=== PATIENT | female | born 1950 | race Caucasian/White ===

== ENCOUNTER 2018-04-25 10:23 | Inpatient (IN) | payer MEDICARE, OTHER ==
[~2018-04-25] VITALS: Ht 160 cm; Wt 85.1 kg
[2018-04-25] VITALS (8 sets, daily range): BP systolic 107–163; BP diastolic 50–97
[2018-04-25 10:48] LABS: BASOPHILS % (AUTO) 0.7 % (0.0-5.0); HEMATOCRIT 28.3 % (36-48); LYMPHOCYTES % (AUTO) 10.3 % (21.0-51.0); MEAN CORPUSCULAR HEMOGLOBIN 30.5 pg (27.0-33.0); MEAN CORPUSCULAR HGB CONC 33.8 g/dL (32.0-36.0); MEAN CORPUSCULAR VOLUME 90.2 fL (79-99); MONOCYTES % (AUTO) 3.2 % (3.0-13.0); NEUTROPHILS % (AUTO) 84.8 % (40.0-77.0); PLATELET COUNT (AUTO) 313 K/uL (130-400); RED BLOOD CELL COUNT(AUTO) 3.14 MIL/uL (4.00-5.50); RED CELL DISTRIBUTION WIDTH 13.6 % (11.0-15.5); WHITE BLOOD COUNT (AUTO) 13.4 K/uL (4.8-10.8)
[2018-04-25 11:06] LABS: CREATININE 1.3 mg/dL (0.5-1.5); POTASSIUM 4.8 mmol/L (3.5-5.1)
[2018-04-25 11:10] LABS: B-TYPE NATRIURETIC PEPTIDE 783 pg/mL (0-100)
[2018-04-25 11:11] LABS: BILIRUBIN,TOTAL 0.4 mg/dL (0.2-1.0); TOTAL PROTEIN, SERUM 6.5 g/dL (6.0-8.3)
[2018-04-25] MEDS ORDERED: EPINEPHRINE 0.1 MG/ML 10 ML SYG IVP ONE (12:00)
[2018-04-25] MEDS ORDERED: SODIUM BICARB 8.4% 50ML SYRINGE IVP ONE (12:00)
[2018-04-25] MEDS ORDERED: CALCIUM CHLORIDE 100 MG/ML 10 ML SYG IVP ONE (12:00)
[2018-04-25] MEDS ORDERED: SODIUM CHLORIDE 0.9% 100 ML IV ONE (12:10)
[2018-04-25] MEDS ORDERED: CEFTRIAXONE SODIUM 1 GM ONE (12:10)
[2018-04-25] MEDS ORDERED: IOPAMIDOL-370 75 ML VIAL IV ONE (12:29)
[2018-04-25 14:59] LABS: CREATINE KINASE MB 3.2 ng/mL (0.5-3.6)
[2018-04-25] MEDS ORDERED: HEPARIN SODIUM 1000UNIT/ML 10ML VIAL ONE (16:49)
[2018-04-25] MEDS ORDERED: BIVALIRUDIN 250 MG/VIAL IV ONE (16:49)
[2018-04-25] MEDS ORDERED: ISOVUE-370 50ML VIAL IV ONE (16:50)
[2018-04-25] MEDS ORDERED: IOPAMIDOL-370 100 ML VIAL IV ONE (16:50)
[2018-04-25] MEDS ORDERED: NITROGLYCERIN 5 MG/ML 10 ML VIAL IV ONE (16:50)
[2018-04-25] MEDS ORDERED: LIDOCAINE HCL 2% 20ML ONE (16:50)
[2018-04-25 16:55] LABS: INR 0.91 (0.85-1.15); PARTIAL THROMBOPLASTIN TIME 26.4 SEC (26.3-35.5); PROTHROMBIN TIME 9.6 SEC (9.6-11.6)
[2018-04-25 17:06] LABS: CREATINE KINASE MB 3.4 ng/mL (0.5-3.6); TROPONIN I 0.4 ng/mL (0.00-0.06)
[2018-04-25] MEDS ORDERED: MIDAZOLAM HCL 1 MG/ML 2ML VIAL ONE (17:34)
[2018-04-25] MEDS ORDERED: MORPHINE SULFATE 4 MG/1ML SYG ONE (17:35)
[2018-04-25] MEDS ORDERED: NITROGLYCERIN 50 MG/D5% WATER 1 BOT ONE (17:58)
[2018-04-25] MEDS ORDERED: FUROSEMIDE 10 MG/ML 2ML VIAL ONE (18:15)
[2018-04-25] MEDS ORDERED: CHOL500050 PO (18:16)
[2018-04-25] MEDS ORDERED: AEC81 PO (18:16)
[2018-04-25] MEDS ORDERED: ESCI10TA PO (18:16)
[2018-04-25] MEDS ORDERED: SITA100T12 PO (18:16)
[2018-04-25] MEDS ORDERED: GLYB2.5T5 PO (18:16)
[2018-04-25] MEDS ORDERED: SODIUM CHLORIDE 0.9% 1000ML 1,000 ML IV SCH (19:41)
[2018-04-25] MEDS ORDERED: DEXTROSE 50%-WATER 50 ML DISP.SYRIN IV PRN (19:45)
[2018-04-25] MEDS ORDERED: GLUCAGON 1MG KIT 1 MG ML IM PRN (19:45)
[2018-04-25 20:02] LABS: HEMOGLOBIN A1C 9.3 % (4.0-6.0)
[2018-04-25 20:06] LABS: CHOLESTEROL 177 mg/dL (<200); HDL CHOLESTEROL 53 mg/dL (35-85); LDL DIRECT 105 mg/dL (0-99); TRIGLYCERIDES 163 mg/dL (30-200)
[2018-04-25] MEDS ORDERED: SODIUM CHLORIDE 0.9% 500ML 500 ML IV SCH (20:07)
[2018-04-25] MEDS ORDERED: LISINOPRIL 5 MG TABLET ONE (20:12)
[2018-04-25] MEDS ORDERED: HEPARIN 25000 UNIT/250 ML IV SCH (20:15)
[2018-04-25] MEDS ORDERED: D5W IV SCH (20:15)
[2018-04-25] MEDS ORDERED: DEXTROSE 5%-WATER 1,000 ML IV SCH (20:45)
[2018-04-25] MEDS ORDERED: HEPARIN SODIUM 5000UNIT/ML 1ML VIAL SQ SCH (20:45)
[2018-04-25] MEDS: METOPROLOL TARTRATE 25 MG TAB PO SCH ×2 (21:00→21:02)
[2018-04-25 21:06] LABS: APPEARANCE,URINE Clear (CLEAR); BILIRUBIN,URINE Negative (NEGATIVE); COLOR,URINE Yellow (YELLOW); GLUCOSE, URINE (UA) TRACE mg/dL (NEGATIVE); KETONES,URINE Negative (NEGATIVE); LEUKOCYTE ESTERASE ,URINE Negative (NEGATIVE); NITRATE,URINE Negative (NEGATIVE); OCCULT BLOOD,URINE Trace (NEGATIVE); PROTEIN,URINE POS 2+ (NEGATIVE); UROBILINOGEN,URINE 0.2 mg/dL (0.2-1.0)
[2018-04-25] MEDS ORDERED: HEPARIN SODIUM 5000UNIT/ML 1ML VIAL IV SCH (21:15)
[2018-04-25 21:21] LABS: BACTERIA,URINE Few /HPF (None Seen); SQUAMOUS EPITHELIAL CELL,UR Rare /HPF (0-2); WBC,URINE 0-1 /HPF (0-1)
[2018-04-25] MEDS ORDERED: PHARMACY COMMUNICATION MISC STA (21:23)
[2018-04-25] MEDS ORDERED: WATER IV SCH (21:30)
[2018-04-25] MEDS ORDERED: DEXTROSE 5% IV SCH (21:30)
[2018-04-25] MEDS ORDERED: HEPARIN SODIUM IV SCH (21:30)
[2018-04-25] MEDS ORDERED: LORAZEPAM 1 MG TABLET PO STA (23:44)
[2018-04-25] MEDS ORDERED: LORAZEPAM 1 MG TABLET ONE (23:47)
[2018-04-26] VITALS (29 sets, daily range): BP systolic 97–150; BP diastolic 50–88
[2018-04-26 04:02] LABS: HEMATOCRIT 22.7 % (36-48); MEAN CORPUSCULAR HEMOGLOBIN 30.7 pg (27.0-33.0); MEAN CORPUSCULAR HGB CONC 34.6 g/dL (32.0-36.0); MEAN CORPUSCULAR VOLUME 88.9 fL (79-99); PLATELET COUNT (AUTO) 296 K/uL (130-400); RED BLOOD CELL COUNT(AUTO) 2.55 MIL/uL (4.00-5.50); RED CELL DISTRIBUTION WIDTH 13.3 % (11.0-15.5); WHITE BLOOD COUNT (AUTO) 8.7 K/uL (4.8-10.8)
[2018-04-26 04:03] LABS: INR 0.95 (0.85-1.15); PARTIAL THROMBOPLASTIN TIME 32.4 SEC (26.3-35.5)
[2018-04-26] MEDS ORDERED: LORAZEPAM 2 MG/ML 1 ML VIAL IVP STA (04:11)
[2018-04-26] MEDS ORDERED: LORAZEPAM 2 MG/ML 1 ML VIAL ONE (04:16)
[2018-04-26 04:24] LABS: B-TYPE NATRIURETIC PEPTIDE 678 pg/mL (0-100)
[2018-04-26 04:30] LABS: ALBUMIN 2.4 g/dL (3.5-5.0); BILIRUBIN,TOTAL 0.3 mg/dL (0.2-1.0); CREATINE KINASE MB 4.8 ng/mL (0.5-3.6); CREATININE 1.1 mg/dL (0.5-1.5); MAGNESIUM 1.7 mg/dL (1.80-2.40); TOTAL PROTEIN, SERUM 5.4 g/dL (6.0-8.3)
[2018-04-26 04:31] LABS: TROPONIN I 1.61 ng/mL (0.00-0.06)
[2018-04-26] MEDS ORDERED: HEPARIN SODIUM 1000UNIT/ML 10ML VIAL ONE ×3 (07:02→08:55)
[2018-04-26] MEDS ORDERED: OCTYL 2-CYANOACRYLATE 1 EACH TP ONE (07:02)
[2018-04-26] MEDS ORDERED: BACITRACIN 50,000 UNIT VIAL ONE (07:03)
[2018-04-26] MEDS ORDERED: PAPAVERINE HCL 30 MG/ML 2ML VIAL ONE (07:03)
[2018-04-26] MEDS ORDERED: AMIODARONE HCL 50 MG/ML 3 ML VIAL ONE (07:08)
[2018-04-26] MEDS ORDERED: NITROGLYCERIN 50 MG/D5% WATER 1 BOT ONE (07:09)
[2018-04-26] MEDS ORDERED: MAGNESIUM 2GM PREMIX 50ML 50 ML IV ONE (07:10)
[2018-04-26] MEDS ORDERED: CEFUROXIME SODIUM 1.5 GM VIAL IVP SCH (08:00)
[2018-04-26] MEDS ORDERED: CEFUROXIME 1.5GM+NS 100ML 100 ML IV SCH ×2 (08:00→20:00)
[2018-04-26] MEDS ORDERED: ROCURONIUM BROMIDE 10MG/1ML 5ML VL ONE (08:36)
[2018-04-26] MEDS ORDERED: NEOSTIGMINE 5MG/5ML SYR IV ONE (08:36)
[2018-04-26] MEDS ORDERED: MILRINONE-D5W 20 MG/100 ML 0 ML IV ONE (08:36)
[2018-04-26] MEDS ORDERED: NOREPINEPHRINE BITARTRATE 1 MG/1 ML ML IV ONE (08:36)
[2018-04-26] MEDS ORDERED: ESMOLOL HCL 10 MG/ML 10 ML VIAL ONE (08:36)
[2018-04-26] MEDS ORDERED: AMINOCAPROIC ACID 250 MG/ML 20 ML VIAL IV ONE (08:36)
[2018-04-26] MEDS ORDERED: PROTAMINE SULFATE 10 MG/ML 25ML VIAL IV ONE (08:36)
[2018-04-26] MEDS ORDERED: GLYCOPYRROLATE 0.2 MG/ML 5 ML VIAL ONE (08:36)
[2018-04-26] MEDS ORDERED: LIDOCAINE PF 2% 5ML ABBOJECT ONE (08:36)
[2018-04-26] MEDS ORDERED: EPINEPHRINE 1 MG/ML AMPULE ONE (08:36)
[2018-04-26] MEDS ORDERED: FENTANYL CITRATE PF 50 MCG/1 ML 20ML VIAL IJ ONE (08:37)
[2018-04-26] MEDS ORDERED: PROPOFOL 10 MG/ML 20ML VIAL IV ONE (08:37)
[2018-04-26] MEDS ORDERED: MIDAZOLAM HCL 1 MG/ML 5ML VIAL ONE (08:37)
[2018-04-26] MEDS ORDERED: THROMBIN-JMI 5000 UNIT/VIAL TP ONE (08:55)
[2018-04-26 09:22] LABS: ABG BASE EXCESS -3.6 mmol/L (-2.0-3.0); ABG HCO3 22.3 mmol/L (21.0-28.0); ABG PCO2 44 mmHg (32-45)
[2018-04-26] MEDS ORDERED: SODIUM BICARB 50MEQ 50ML VIAL ONE ×4 (10:00→16:41)
[2018-04-26 10:25] LABS: ABG BASE EXCESS -1.3 mmol/L (-2.0-3.0); ABG HCO3 23.8 mmol/L (21.0-28.0); ABG OXYGEN SATURATION 98.8 % (95.0-99.0); ABG PCO2 41 mmHg (32-45)
[2018-04-26 11:33] LABS: ABG BASE EXCESS -7.3 mmol/L (-2.0-3.0); ABG HCO3 20.2 mmol/L (21.0-28.0); ABG OXYGEN SATURATION 97.6 % (95.0-99.0); ABG PCO2 50 mmHg (32-45)
[2018-04-26] MEDS ORDERED: SODIUM BICARB 8.4% 50ML SYRINGE ONE (11:36)
[2018-04-26] MEDS ORDERED: ALBUMIN (HUMAN) 5% 250 ML IV ONE (11:48)
[2018-04-26] MEDS ORDERED: SODIUM CHLORIDE 0.9% 500ML 500 ML IV SCH ×2 (11:48)
[2018-04-26] MEDS ORDERED: EPHEDRINE SULFATE 50 MG/ML AMPULE ONE (11:54)
[2018-04-26] MEDS ORDERED: POTASSIUM PHOS 15 mMOL+NS250ML 250 ML IV PRN (12:00)
[2018-04-26] MEDS ORDERED: MORPHINE SULFATE 2 MG/ML 1ML SYG IV PRN (12:00)
[2018-04-26] MEDS ORDERED: NOREPINEPHRINE 4MG/NS 250ML 250 ML IV PRN (12:00)
[2018-04-26] MEDS ORDERED: SODIUM CHLORIDE 0.9% 10 ML VIAL IVP PRN (12:00)
[2018-04-26] MEDS ORDERED: GLUCAGON 1MG KIT 1 MG ML IM PRN (12:00)
[2018-04-26] MEDS ORDERED: DEXTROSE 50%-WATER 50 ML DISP.SYRIN IV PRN (12:00)
[2018-04-26] MEDS ORDERED: NITROGLYCERIN 50 MG/D5% WATER 250 BOT IV SCH (12:00)
[2018-04-26] MEDS ORDERED: ACETAMINOPHEN 650 MG SUPPOSITORY RC PRN (12:00)
[2018-04-26] MEDS ORDERED: CALCIUM GLUCONATE 1 GM in SODIUM CHLORIDE 0.9% 50 ML IV PRN (12:00)
[2018-04-26] MEDS ORDERED: PROPOFOL 1000 MG/100 ML 100 ML IV PRN (12:00)
[2018-04-26] MEDS ORDERED: ONDANSETRON HCL 4 MG/2 ML VIAL IV PRN (12:00)
[2018-04-26] MEDS ORDERED: AMINOCAPROIC ACID 15,000 MG in SODIUM CHLORIDE 0.9% 250 ML IV SCH (12:00)
[2018-04-26] MEDS ORDERED: EPINEPHRINE 2 MG in SODIUM CHLORIDE 0.9% 250 ML IV PRN (12:00)
[2018-04-26] MEDS ORDERED: SODIUM CHLORIDE 0.9% 250 ML IV PRN (12:00)
[2018-04-26] MEDS ORDERED: ACETAMINOPHEN 325 MG TAB PO PRN (12:00)
[2018-04-26] MEDS ORDERED: NICARDIPINE HCL 100 MG in SODIUM CHLORIDE 0.9% 60 ML IV PRN (12:00)
[2018-04-26] MEDS ORDERED: SODIUM CHLORIDE 0.9% 1000ML 1,000 ML IV SCH (12:00)
[2018-04-26] MEDS ORDERED: INSULIN REGULAR, HUMAN 3ML 100 UNIT in SODIUM CHLORIDE 0.9% 99 ML IV SCH ×2 (12:00)
[2018-04-26 12:36] LABS: ABG BASE EXCESS -7.1 mmol/L (-2.0-3.0); ABG HCO3 19.1 mmol/L (21.0-28.0); ABG PCO2 41 mmHg (32-45)
[2018-04-26 12:41] LABS: HEMATOCRIT 27.4 % (36-48); MEAN CORPUSCULAR HEMOGLOBIN 29.8 pg (27.0-33.0); MEAN CORPUSCULAR HGB CONC 33.7 g/dL (32.0-36.0); MEAN CORPUSCULAR VOLUME 88.4 fL (79-99); PLATELET COUNT (AUTO) 167 K/uL (130-400); RED CELL DISTRIBUTION WIDTH 13.7 % (11.0-15.5); WHITE BLOOD COUNT (AUTO) 26.9 K/uL (4.8-10.8)
[2018-04-26 12:52] LABS: CREATININE 1.2 mg/dL (0.5-1.5); MAGNESIUM 1.6 mg/dL (1.80-2.40); PHOSPHORUS 4.5 mg/dL (2.5-4.9); POTASSIUM 3.1 mmol/L (3.5-5.1)
[2018-04-26] MEDS: MAGNESIUM 2GM PREMIX 50ML 50 ML IV PRN ×2 (13:38→20:03)
[2018-04-26] MEDS: POTASSIUM CHLORIDE 20MEQ/100ML 100 ML IV PRN ×3 (13:38→17:07)
[2018-04-26] MEDS: SODIUM BICARB 8.4% 50ML SYRINGE IV PRN ×2 (13:39→13:40)
[2018-04-26] MEDS: ALBUMIN (HUMAN) 5% 250 ML IV PRN (13:40)
[2018-04-26 14:13] LABS: ABG BASE EXCESS 0.9 mmol/L (-2.0-3.0); ABG HCO3 25.4 mmol/L (21.0-28.0); ABG OXYGEN SATURATION 98.7 % (95.0-99.0); ABG PCO2 40 mmHg (32-45)
[2018-04-26 16:20] LABS: ABG BASE EXCESS -1.2 mmol/L (-2.0-3.0); ABG HCO3 22.6 mmol/L (21.0-28.0); ABG OXYGEN SATURATION 95.8 % (95.0-99.0); ABG PCO2 34 mmHg (32-45)
[2018-04-26] MEDS ORDERED: CALCIUM GLUCONATE 1 GM/10 ML VIAL IV ONE (16:41)
[2018-04-26] MEDS ORDERED: SODIUM CHLORIDE 0.9% 100 ML IV ONE (16:42)
[2018-04-26 18:30] LABS: ABG BASE EXCESS 0.7 mmol/L (-2.0-3.0); ABG HCO3 25.5 mmol/L (21.0-28.0); ABG PCO2 41 mmHg (32-45)
[2018-04-26 19:34] LABS: ABG BASE EXCESS 1.7 mmol/L (-2.0-3.0); ABG HCO3 27.1 mmol/L (21.0-28.0); ABG PCO2 45 mmHg (32-45)
[2018-04-26 19:43] LABS: MAGNESIUM 1.9 mg/dL (1.80-2.40); POTASSIUM 4.2 mmol/L (3.5-5.1)
[2018-04-26] MEDS: CEFUROXIME SODIUM 1.5 GM VIAL IVP SCH (19:43)
[2018-04-26] MEDS: HYDROCODONE/ACETAMINOPHEN 5/325 MG TAB PO PRN ×2 (19:44→20:59)
[2018-04-27] VITALS (23 sets, daily range): BP systolic 44–194; BP diastolic 23–117
[2018-04-27] MEDS ORDERED: DEXTROSE 5%-WATER 1,000 ML IV ONE (03:33)
[2018-04-27 04:01] LABS: MEAN CORPUSCULAR HEMOGLOBIN 30.9 pg (27.0-33.0); MEAN CORPUSCULAR HGB CONC 35.6 g/dL (32.0-36.0); MEAN CORPUSCULAR VOLUME 86.9 fL (79-99); PLATELET COUNT (AUTO) 116 K/uL (130-400); RED BLOOD CELL COUNT(AUTO) 2.07 MIL/uL (4.00-5.50); RED CELL DISTRIBUTION WIDTH 14.4 % (11.0-15.5); WHITE BLOOD COUNT (AUTO) 21.2 K/uL (4.8-10.8)
[2018-04-27 04:13] LABS: CREATININE 1.3 mg/dL (0.5-1.5); MAGNESIUM 2.4 mg/dL (1.80-2.40); PHOSPHORUS 3.7 mg/dL (2.5-4.9); POTASSIUM 4.6 mmol/L (3.5-5.1)
[2018-04-27 05:34] LABS: HEMATOCRIT 18.2 % (36-48)
[2018-04-27 05:51] LABS: ABG BASE EXCESS 2.1 mmol/L (-2.0-3.0); ABG HCO3 27.5 mmol/L (21.0-28.0); ABG OXYGEN SATURATION 94.3 % (95.0-99.0); ABG PCO2 46 mmHg (32-45)
[2018-04-27] MEDS: PANTOPRAZOLE SODIUM 40 MG TABLET.DR PO SCH (08:01)
[2018-04-27] MEDS: CEFUROXIME SODIUM 1.5 GM VIAL IVP SCH ×2 (08:01→20:06)
[2018-04-27] MEDS ORDERED: PROTAMINE SULFATE 10 MG/ML 5 ML VIAL ONE (09:43)
[2018-04-27 10:27] LABS: INR 1.22 (0.85-1.15); PROTHROMBIN TIME 12.8 SEC (9.6-11.6)
[2018-04-27] MEDS: HYDROCODONE/ACETAMINOPHEN 5/325 MG TAB PO PRN (11:09)
[2018-04-27 12:28] LABS: HEMATOCRIT 23.1 % (36-48)
[2018-04-27] MEDS ORDERED: ALBUMIN (HUMAN) 5% 250 ML IV ONE ×3 (12:43→13:54)
[2018-04-27] MEDS ORDERED: SODIUM CHLORIDE 0.9% 1000ML 1,000 ML IV ONE (13:28)
[2018-04-27 13:48] LABS: ABG BASE EXCESS -3.6 mmol/L (-2.0-3.0); ABG HCO3 22.8 mmol/L (21.0-28.0); ABG OXYGEN SATURATION 97.4 % (95.0-99.0); ABG PCO2 50 mmHg (32-45)
[2018-04-27] MEDS ORDERED: SODIUM BICARB 50MEQ 50ML VIAL ONE ×2 (13:49→14:48)
[2018-04-27 14:01] LABS: HEMATOCRIT 14.2 % (36-48)
[2018-04-27] MEDS ORDERED: GLYCOPYRROLATE 0.2 MG/ML 5 ML VIAL ONE (14:11)
[2018-04-27] MEDS ORDERED: LIDOCAINE PF 2% 5ML ABBOJECT ONE (14:11)
[2018-04-27] MEDS ORDERED: DEXAMETHASONE SOD PHOSPHATE 10MG/ML 1ML VIAL ONE (14:11)
[2018-04-27] MEDS ORDERED: NEOSTIGMINE 5MG/5ML SYR IV ONE (14:11)
[2018-04-27] MEDS ORDERED: PROPOFOL 10 MG/ML 20ML VIAL IV ONE (14:12)
[2018-04-27] MEDS ORDERED: MIDAZOLAM HCL 1 MG/ML 2ML VIAL ONE (14:12)
[2018-04-27] MEDS ORDERED: SUCCINYLCHOLINE 200MG/10ML SYR ONE (14:12)
[2018-04-27] MEDS ORDERED: ONDANSETRON HCL 4 MG/2 ML VIAL ONE (14:12)
[2018-04-27] MEDS ORDERED: BACITRACIN 50,000 UNIT VIAL ONE (14:26)
[2018-04-27] MEDS ORDERED: OCTYL 2-CYANOACRYLATE 1 EACH TP ONE (14:26)
[2018-04-27] MEDS ORDERED: CEFUROXIME SODIUM 1.5 GM VIAL ONE (14:33)
[2018-04-27 14:45] LABS: ABG BASE EXCESS -7.8 mmol/L (-2.0-3.0); ABG HCO3 18.6 mmol/L (21.0-28.0); ABG OXYGEN SATURATION 98.3 % (95.0-99.0); ABG PCO2 41 mmHg (32-45)
[2018-04-27 15:26] LABS: MEAN CORPUSCULAR HEMOGLOBIN 28.7 pg (27.0-33.0); MEAN CORPUSCULAR HGB CONC 34.7 g/dL (32.0-36.0); MEAN CORPUSCULAR VOLUME 82.7 fL (79-99); NUCLEATED RED BLOOD CELLS 0.1 % (0.0-0.19); PLATELET COUNT (AUTO) 42 K/uL (130-400); RED BLOOD CELL COUNT(AUTO) 3.98 MIL/uL (4.00-5.50); RED CELL DISTRIBUTION WIDTH 15.7 % (11.0-15.5); WHITE BLOOD COUNT (AUTO) 17.1 K/uL (4.8-10.8)
[2018-04-27 15:40] LABS: CREATININE 1.6 mg/dL (0.5-1.5); POTASSIUM 4.1 mmol/L (3.5-5.1)
[2018-04-27 15:42] LABS: INR 1.28 (0.85-1.15); PARTIAL THROMBOPLASTIN TIME 48.1 SEC (26.3-35.5); PROTHROMBIN TIME 13.4 SEC (9.6-11.6)
[2018-04-27] MEDS ORDERED: PROPOFOL 1000 MG/100 ML 100 ML IV ONE (15:46)
[2018-04-27 15:57] LABS: PLATELET MORPHOLOGY COMMENT MARKED DECREASED
[2018-04-27] MEDS: MORPHINE SULFATE 4 MG/1ML SYG IV PRN ×2 (16:02→17:12)
[2018-04-27 16:25] LABS: ABG BASE EXCESS -0.9 mmol/L (-2.0-3.0); ABG HCO3 23.7 mmol/L (21.0-28.0); ABG OXYGEN SATURATION 92.1 % (95.0-99.0); ABG PCO2 39 mmHg (32-45)
[2018-04-27] MEDS ORDERED: PROPOFOL 1000 MG/100 ML IV PRN (16:30)
[2018-04-27 17:23] LABS: ABG BASE EXCESS -1.1 mmol/L (-2.0-3.0); ABG HCO3 23.9 mmol/L (21.0-28.0); ABG OXYGEN SATURATION 92.2 % (95.0-99.0); ABG PCO2 41 mmHg (32-45)
[2018-04-27] MEDS ORDERED: FUROSEMIDE 10 MG/ML 4ML VIAL ONE (18:25)
[2018-04-27] MEDS ORDERED: FUROSEMIDE 10 MG/ML 4ML VIAL IV SCH (18:30)
[2018-04-27 18:52] LABS: HEMATOCRIT 31.6 % (36-48); MEAN CORPUSCULAR HEMOGLOBIN 28.8 pg (27.0-33.0); MEAN CORPUSCULAR HGB CONC 35.6 g/dL (32.0-36.0); PLATELET COUNT (AUTO) 57 K/uL (130-400); RED CELL DISTRIBUTION WIDTH 15.8 % (11.0-15.5); WHITE BLOOD COUNT (AUTO) 16.3 K/uL (4.8-10.8)
[2018-04-27 19:00] LABS: INR 1.11 (0.85-1.15); PARTIAL THROMBOPLASTIN TIME 42.6 SEC (26.3-35.5); PROTHROMBIN TIME 11.6 SEC (9.6-11.6)
[2018-04-27] MEDS ORDERED: EPINEPHRINE 8 MG in DEXTROSE 5%-WATER 250 ML IV PRN (20:15)
[2018-04-27] MEDS ORDERED: EPINEPHRINE 8 MG in SODIUM CHLORIDE 0.9% 250 ML IV PRN (20:15)
[2018-04-27] MEDS ORDERED: DEXTROSE 5%-WATER 1,000 ML IV SCH (21:00)
[2018-04-27 21:42] LABS: HEMATOCRIT 31.4 % (36-48); MEAN CORPUSCULAR HEMOGLOBIN 28.8 pg (27.0-33.0); MEAN CORPUSCULAR HGB CONC 35.3 g/dL (32.0-36.0); MEAN CORPUSCULAR VOLUME 81.7 fL (79-99); NUCLEATED RED BLOOD CELLS 0.1 % (0.0-0.19); PLATELET COUNT (AUTO) 61 K/uL (130-400); RED BLOOD CELL COUNT(AUTO) 3.84 MIL/uL (4.00-5.50); RED CELL DISTRIBUTION WIDTH 15.8 % (11.0-15.5)
[2018-04-27 21:51] LABS: INR 1.07 (0.85-1.15); PARTIAL THROMBOPLASTIN TIME 38.7 SEC (26.3-35.5); PROTHROMBIN TIME 11.2 SEC (9.6-11.6)
[2018-04-27 21:53] LABS: ABG HCO3 26.2 mmol/L (21.0-28.0); ABG OXYGEN SATURATION 94.9 % (95.0-99.0); ABG PCO2 36 mmHg (32-45)
[2018-04-27] MEDS ORDERED: FUROSEMIDE 10 MG/ML 10ML VIAL ONE (22:21)
[2018-04-27] MEDS ORDERED: SODIUM CHLORIDE 0.9% 100 ML IV ONE (22:22)
[2018-04-27] MEDS ORDERED: FUROSEMIDE 100 MG in SODIUM CHLORIDE 0.9% 90 ML IV SCH (22:30)
[2018-04-28] VITALS (10 sets, daily range): BP systolic 91–115; BP diastolic 46–63
[2018-04-28 02:04] LABS: ABG BASE EXCESS 1.3 mmol/L (-2.0-3.0); ABG HCO3 25.1 mmol/L (21.0-28.0); ABG OXYGEN SATURATION 94.7 % (95.0-99.0); ABG PCO2 37 mmHg (32-45)
[2018-04-28 02:20] LABS: MAGNESIUM 2.1 mg/dL (1.80-2.40)
[2018-04-28 04:17] LABS: HEMATOCRIT 32.2 % (36-48); MEAN CORPUSCULAR HEMOGLOBIN 29.3 pg (27.0-33.0); MEAN CORPUSCULAR HGB CONC 35.9 g/dL (32.0-36.0); MEAN CORPUSCULAR VOLUME 81.6 fL (79-99); NUCLEATED RED BLOOD CELLS 0.1 % (0.0-0.19); PLATELET COUNT (AUTO) 70 K/uL (130-400); RED BLOOD CELL COUNT(AUTO) 3.94 MIL/uL (4.00-5.50); RED CELL DISTRIBUTION WIDTH 16.2 % (11.0-15.5); WHITE BLOOD COUNT (AUTO) 15.3 K/uL (4.8-10.8)
[2018-04-28 04:27] LABS: INR 1.03 (0.85-1.15); PARTIAL THROMBOPLASTIN TIME 36.9 SEC (26.3-35.5); PROTHROMBIN TIME 10.8 SEC (9.6-11.6)
[2018-04-28 05:17] LABS: CREATININE 1.7 mg/dL (0.5-1.5); POTASSIUM 4.3 mmol/L (3.5-5.1)
[2018-04-28 05:24] LABS: ABG BASE EXCESS -1.4 mmol/L (-2.0-3.0); ABG HCO3 23.1 mmol/L (21.0-28.0); ABG OXYGEN SATURATION 93.7 % (95.0-99.0); ABG PCO2 38 mmHg (32-45)
[2018-04-28 06:39] LABS: ABG BASE EXCESS -0.5 mmol/L (-2.0-3.0); ABG HCO3 24.2 mmol/L (21.0-28.0); ABG OXYGEN SATURATION 94.9 % (95.0-99.0); ABG PCO2 40 mmHg (32-45)
[2018-04-28] MEDS: HYDROCODONE/ACETAMINOPHEN 5/325 MG TAB PO PRN ×3 (07:56→20:45)
[2018-04-28] MEDS: PANTOPRAZOLE SODIUM 40 MG TABLET.DR PO SCH ×2 (08:02→14:10)
[2018-04-28] MEDS ORDERED: ASPIRIN 81MG TAB.CHEW ONE (16:04)
[2018-04-28] MEDS: ATORVASTATIN CALCIUM 40 MG TABLET PO SCH (20:43)
[2018-04-28 22:02] LABS: MAGNESIUM 1.9 mg/dL (1.80-2.40); POTASSIUM 4.8 mmol/L (3.5-5.1)
[2018-04-29] VITALS (26 sets, daily range): BP systolic 80–132; BP diastolic 34–71
[2018-04-29] MEDS ORDERED: ALBUMIN (HUMAN) 5% 500 ML IV SCH (02:00)
[2018-04-29] MEDS ORDERED: DEXTROSE 5 % AND 0.9 % NACL 1,000 ML IV SCH (02:00)
[2018-04-29] MEDS ORDERED: DOPAMINE 800MG/D5 250ML 250 ML IV PRN (02:00)
[2018-04-29 02:10] LABS: CREATININE 2.4 mg/dL (0.5-1.5); MAGNESIUM 1.9 mg/dL (1.80-2.40); PHOSPHORUS 6.7 mg/dL (2.5-4.9); POTASSIUM 4.9 mmol/L (3.5-5.1)
[2018-04-29 02:11] LABS: HEMATOCRIT 31.5 % (36-48); MEAN CORPUSCULAR HGB CONC 34.5 g/dL (32.0-36.0); MEAN CORPUSCULAR VOLUME 84.1 fL (79-99); NUCLEATED RED BLOOD CELLS 0.3 % (0.0-0.19); PLATELET COUNT (AUTO) 74 K/uL (130-400); RED BLOOD CELL COUNT(AUTO) 3.75 MIL/uL (4.00-5.50); RED CELL DISTRIBUTION WIDTH 16.6 % (11.0-15.5); WHITE BLOOD COUNT (AUTO) 11.9 K/uL (4.8-10.8)
[2018-04-29] MEDS: HYDROCODONE/ACETAMINOPHEN 5/325 MG TAB PO PRN ×3 (10:17→18:23)
[2018-04-29] MEDS: ASPIRIN 81MG TAB.CHEW PO SCH (10:18)
[2018-04-29] MEDS: ATORVASTATIN CALCIUM 40 MG TABLET PO SCH (21:00)
[2018-04-29] MEDS: SODIUM CHLORIDE 0.9% 1000ML 1,000 ML IV SCH (21:51)
[2018-04-29] MEDS: INSULIN HUMULIN R 100 UNIT/ML 3ML SQ SCH (21:52)
[2018-04-30 03:30] VITALS: BP 101/48
[2018-04-30 04:01] LABS: CREATININE 2.4 mg/dL (0.5-1.5); POTASSIUM 4.5 mmol/L (3.5-5.1)
[2018-04-30] MEDS: INSULIN HUMULIN R 100 UNIT/ML 3ML SQ SCH ×4 (06:06→22:56)
[2018-04-30 07:27] VITALS: BP 128/65
[2018-04-30] MEDS: PANTOPRAZOLE SODIUM 40 MG TABLET.DR PO SCH (10:19)
[2018-04-30] MEDS: ASPIRIN 81MG TAB.CHEW PO SCH (10:20)
[2018-04-30] MEDS: HYDROCODONE/ACETAMINOPHEN 5/325 MG TAB PO PRN ×2 (10:21→19:58)
[2018-04-30 11:08] VITALS: BP 141/68
[2018-04-30] MEDS: SODIUM CHLORIDE 0.9% 1000ML 1,000 ML IV SCH (17:00)
[2018-04-30 17:16] VITALS: BP 122/67
[2018-04-30 19:19] VITALS: BP 137/61
[2018-04-30] MEDS: ATORVASTATIN CALCIUM 40 MG TABLET PO SCH (19:58)
[2018-04-30] MEDS: CARVEDILOL 3.125 MG TABLET PO SCH (19:59)
[2018-04-30 23:38] VITALS: BP 108/59
[2018-05-01 04:00] VITALS: BP 128/64
[2018-05-01 04:16] LABS: CREATININE 2.1 mg/dL (0.5-1.5)
[2018-05-01] MEDS: INSULIN HUMULIN R 100 UNIT/ML 3ML SQ SCH ×4 (05:46→21:19)
[2018-05-01 07:29] VITALS: BP 117/64
[2018-05-01] MEDS: PANTOPRAZOLE SODIUM 40 MG TABLET.DR PO SCH (09:30)
[2018-05-01] MEDS: HYDROCODONE/ACETAMINOPHEN 5/325 MG TAB PO PRN ×3 (09:30→20:39)
[2018-05-01] MEDS: ASPIRIN 81MG TAB.CHEW PO SCH (09:31)
[2018-05-01] MEDS: CARVEDILOL 3.125 MG TABLET PO SCH ×2 (09:31→20:38)
[2018-05-01 11:10] VITALS: BP 153/68
[2018-05-01] MEDS: ENOXAPARIN SODIUM 30 MG/0.3 ML SQ SCH (15:26)
[2018-05-01 16:05] VITALS: BP 143/67
[2018-05-01 20:01] VITALS: BP 134/61
[2018-05-01] MEDS: ATORVASTATIN CALCIUM 40 MG TABLET PO SCH (20:39)
[2018-05-01 23:42] VITALS: BP 112/64
[2018-05-02 03:51] VITALS: BP 125/65
[2018-05-02 04:35] LABS: CREATININE 1.7 mg/dL (0.5-1.5); POTASSIUM 4.1 mmol/L (3.5-5.1)
[2018-05-02] MEDS: INSULIN HUMULIN R 100 UNIT/ML 3ML SQ SCH ×4 (05:38→21:03)
[2018-05-02 08:00] VITALS: BP 136/72
[2018-05-02] MEDS: ASPIRIN 81MG TAB.CHEW PO SCH (08:35)
[2018-05-02] MEDS: FUROSEMIDE 20 MG TABLET PO SCH ×2 (08:35→16:47)
[2018-05-02] MEDS: PANTOPRAZOLE SODIUM 40 MG TABLET.DR PO SCH (08:35)
[2018-05-02] MEDS: CARVEDILOL 3.125 MG TABLET PO SCH ×2 (08:35→21:01)
[2018-05-02] MEDS: ENOXAPARIN SODIUM 30 MG/0.3 ML SQ SCH (08:36)
[2018-05-02] MEDS: NEOMY SULF/BACITRA/POLYMYXIN B 1 EACH PACKET TP SCH ×2 (08:39→21:00)
[2018-05-02 12:00] VITALS: BP 141/68
[2018-05-02 16:00] VITALS: BP 132/66
[2018-05-02 19:24] VITALS: BP 156/72
[2018-05-02] MEDS: ATORVASTATIN CALCIUM 40 MG TABLET PO SCH (21:02)
[2018-05-02] MEDS: HYDROCODONE/ACETAMINOPHEN 5/325 MG TAB PO PRN (21:50)
[2018-05-03] VITALS (7 sets, daily range): BP systolic 112–151; BP diastolic 60–80
[2018-05-03 04:16] LABS: HEMATOCRIT 33.8 % (36-48); MEAN CORPUSCULAR HEMOGLOBIN 28.5 pg (27.0-33.0); MEAN CORPUSCULAR HGB CONC 33.8 g/dL (32.0-36.0); MEAN CORPUSCULAR VOLUME 84.2 fL (79-99); PLATELET COUNT (AUTO) 245 K/uL (130-400); RED BLOOD CELL COUNT(AUTO) 4.02 MIL/uL (4.00-5.50); RED CELL DISTRIBUTION WIDTH 15.9 % (11.0-15.5)
[2018-05-03 04:21] LABS: CREATININE 1.3 mg/dL (0.5-1.5); POTASSIUM 4.1 mmol/L (3.5-5.1)
[2018-05-03] MEDS: INSULIN HUMULIN R 100 UNIT/ML 3ML SQ SCH ×4 (06:36→21:11)
[2018-05-03] MEDS: NEOMY SULF/BACITRA/POLYMYXIN B 1 EACH PACKET TP SCH ×2 (09:00→21:00)
[2018-05-03] MEDS: PANTOPRAZOLE SODIUM 40 MG TABLET.DR PO SCH (09:49)
[2018-05-03] MEDS: ASPIRIN 81MG TAB.CHEW PO SCH (09:49)
[2018-05-03] MEDS: FUROSEMIDE 20 MG TABLET PO SCH ×2 (09:50→18:10)
[2018-05-03] MEDS: CARVEDILOL 3.125 MG TABLET PO SCH ×2 (09:50→20:36)
[2018-05-03] MEDS: ENOXAPARIN SODIUM 30 MG/0.3 ML SQ SCH (09:51)
[2018-05-03] MEDS: ATORVASTATIN CALCIUM 40 MG TABLET PO SCH (20:36)
[2018-05-03] MEDS: HYDROCODONE/ACETAMINOPHEN 5/325 MG TAB PO PRN (21:28)
[2018-05-04 03:10] VITALS: BP 125/60
[2018-05-04 04:17] LABS: CREATININE 1.2 mg/dL (0.5-1.5); POTASSIUM 3.8 mmol/L (3.5-5.1)
[2018-05-04] MEDS: POTASSIUM CHLORIDE 20MEQ/100ML 100 ML IV PRN (04:34)
[2018-05-04] MEDS: INSULIN HUMULIN R 100 UNIT/ML 3ML SQ SCH ×2 (06:10→12:30)
[2018-05-04 08:00] VITALS: BP 154/75
[2018-05-04] MEDS: PANTOPRAZOLE SODIUM 40 MG TABLET.DR PO SCH (09:13)
[2018-05-04] MEDS: ASPIRIN 81MG TAB.CHEW PO SCH (09:13)
[2018-05-04] MEDS: FUROSEMIDE 20 MG TABLET PO SCH (09:13)
[2018-05-04] MEDS: ENOXAPARIN SODIUM 30 MG/0.3 ML SQ SCH (09:14)
[2018-05-04] MEDS: CARVEDILOL 3.125 MG TABLET PO SCH (09:14)
[2018-05-04] MEDS ORDERED: LIDOCAINE HCL-MPF 1% 2ML VIAL ONE (09:18)
[2018-05-04] MEDS: NEOMY SULF/BACITRA/POLYMYXIN B 1 EACH PACKET TP SCH (09:31)
[2018-05-04] MEDS ORDERED: POTASSIUM CHLORIDE 10 MEQ/TAB.SA PO SCH (09:45)
[2018-05-04] MEDS ORDERED: FUROSEMIDE 10 MG/ML 2ML VIAL IV SCH (11:45)
[2018-05-04 11:47] VITALS: BP 130/68
[2018-05-04] MEDS ORDERED: MAGNESIUM 2GM PREMIX 50ML 50 ML IV SCH (14:30)
[2018-05-04] MEDS: MAGNESIUM 2GM PREMIX 50ML 50 ML IV PRN (14:31)
[2018-05-04] MEDS ORDERED: FUROSEMIDE 40 MG TABLET PO SCH (17:00)
[2018-05-04] MEDS ORDERED: CARVEDILOL 3.125 MG TABLET PO SCH (21:00)
[2018-05-05] MEDS ORDERED: LISINOPRIL 5 MG TABLET PO SCH (09:00)
[2018-05-06] MEDS ORDERED: FUROSEMIDE 20 MG TABLET PO SCH (17:00)
== END 2018-05-04 17:10 | DRG 215 ==
LOC: EDH 10:23 → EDHIP 13:50 → 3BH 14:57 → 2BH 19:21 → 2CV 04-26 08:44 → 2CH 04-27 10:55 → 2BH 04-28 18:35 → 2DH 05-02 21:18
PROVIDERS: ADMIT Internal Medicine Nephrology; ATTEND Internal Medicine Nephrology
PROC: 5A0221D Assistance with Cardiac Output using Impeller Pump, Continuous (ICD-10-PCS; 2018-04-25)
PROC: 02HA3RZ Insertion of Short-term External Heart Assist System into Heart, Percutaneous Approach (ICD-10-PCS; 2018-04-25)
PROC: B2111ZZ Fluoroscopy of Multiple Coronary Arteries using Low Osmolar Contrast (ICD-10-PCS; 2018-04-25)
PROC: 4A023N8 Measurement of Cardiac Sampling and Pressure, Bilateral, Percutaneous Approach (ICD-10-PCS; 2018-04-25)
PROC: B2151ZZ Fluoroscopy of Left Heart using Low Osmolar Contrast (ICD-10-PCS; 2018-04-25)
PROC: 06BP0ZZ Excision of Right Saphenous Vein, Open Approach (ICD-10-PCS; 2018-04-26)
PROC: 02100Z9 Bypass Coronary Artery, One Artery from Left Internal Mammary, Open Approach (ICD-10-PCS; 2018-04-26)
PROC: 021209W Bypass Coronary Artery, Three Arteries from Aorta with Autologous Venous Tissue, Open Approach (ICD-10-PCS; principal; 2018-04-26 08:42)
PROC: 30233N1 Transfusion of Nonautologous Red Blood Cells into Peripheral Vein, Percutaneous Approach (ICD-10-PCS; 2018-04-26 08:42)
PROC: 02PA3RZ Removal of Short-term External Heart Assist System from Heart, Percutaneous Approach (ICD-10-PCS; 2018-04-27)
PROC: 04QK0ZZ Repair Right Femoral Artery, Open Approach (ICD-10-PCS; 2018-04-27)
DX: I21.4 Non-ST elevation (NSTEMI) myocardial infarction (principal); R57.8 Other shock; I50.43 Acute on chronic combined systolic (congestive) and diastolic (congestive) heart failure; I13.0 Hypertensive heart and chronic kidney disease with heart failure and stage 1 through stage 4 chronic kidney disease, or unspecified chronic kidney disease; J98.11 Atelectasis; N17.9 Acute kidney failure, unspecified; I25.10 Atherosclerotic heart disease of native coronary artery without angina pectoris; N18.9 Chronic kidney disease, unspecified; E11.22 Type 2 diabetes mellitus with diabetic chronic kidney disease; E78.5 Hyperlipidemia, unspecified; F32.9 Major depressive disorder, single episode, unspecified; H35.30 Unspecified macular degeneration; I25.5 Ischemic cardiomyopathy; I27.20 Pulmonary hypertension, unspecified; I50.82 Biventricular heart failure; Z79.82 Long term (current) use of aspirin; Z79.899 Other long term (current) drug therapy; Z87.891 Personal history of nicotine dependence; Z79.84 Long term (current) use of oral hypoglycemic drugs
CPT/HCPCS: 33990; 36415; 36430; 71045; 71275; 80048; 80053; 80061; 81001; 82330; 82435; 82550; 82553; 82803; 82947; 82948; 83036; 83605; 83735; 83874; 83880; 84100; 84132; 84295; 84484; 85014; 85018; 85025; 85027; 85049; 85347; 85378; 85384; 85610; 85730; 86850; 86900; 86901; 86922; 92950; 93005; 93306; 93308; 93460; 93880; 94002; 94003; 94150; 94667; 97039; 99156; 99157; A4218; A4357; A7048; C1894; J0171; J0282; J0330; J0583; J0610; J0696; J0697; J1100; J1265; J1644; J1650; J1815; J1940; J2001; J2060; J2250; J2260; J2270; J2405; J2440; J2704; J2710; J2720; J3010; J3475; J3480; J3490; J7030; J7040; J7070; J7120; P9016; P9045; Q9967

== ENCOUNTER 2018-05-12 13:10 | Inpatient (IN) | payer MEDICARE, OTHER ==
[~2018-05-12] VITALS: Ht 160 cm; Wt 73.0 kg
[~2018-05-12 13:10] MED LIST: AEC81 PO; CHOL500050 PO; ESCI10TA PO; GLYB2.5T5 PO; SITA100T12 PO
[2018-05-12 13:30] LABS: BASOPHILS % (AUTO) 0.5 % (0.0-5.0); EOSINOPHILS % (AUTO) 2.3 % (0.0-8.0); HEMATOCRIT 32.3 % (36-48); LYMPHOCYTES % (AUTO) 7.2 % (21.0-51.0); MEAN CORPUSCULAR HEMOGLOBIN 28.1 pg (27.0-33.0); MEAN CORPUSCULAR HGB CONC 33.1 g/dL (32.0-36.0); MONOCYTES % (AUTO) 6.6 % (3.0-13.0); NEUTROPHILS % (AUTO) 83.4 % (40.0-77.0); PLATELET COUNT (AUTO) 312 K/uL (130-400); RED CELL DISTRIBUTION WIDTH 16.2 % (11.0-15.5); WHITE BLOOD COUNT (AUTO) 9.4 K/uL (4.8-10.8)
[2018-05-12 13:37] LABS: CREATININE 1.5 mg/dL (0.5-1.5); POTASSIUM 4.8 mmol/L (3.5-5.1)
[2018-05-12 13:42] LABS: ALBUMIN 2.2 g/dL (3.5-5.0); BILIRUBIN,TOTAL 0.7 mg/dL (0.2-1.0)
[2018-05-12] MEDS ORDERED: DEXTROSE 50%-WATER 50 ML DISP.SYRIN IV PRN ×2 (14:00→15:30)
[2018-05-12] MEDS ORDERED: LIDOCAINE HCL-MPF 1% 2ML VIAL IJ PRN ×2 (14:00→15:30)
[2018-05-12] MEDS ORDERED: POTASSIUM CHLORIDE 10% ELIXIR 20 MEQ/15 ML UDCUP PO PRN ×2 (14:00→15:30)
[2018-05-12] MEDS ORDERED: GLUCAGON 1MG KIT 1 MG ML IM PRN ×2 (14:00→15:30)
[2018-05-12] MEDS ORDERED: POTASSIUM CHLORIDE 20MEQ/100ML 100 ML IV PRN ×2 (14:00→15:30)
[2018-05-12] MEDS ORDERED: POTASSIUM CHLORIDE 20 MEQ ERTAB PO PRN ×2 (14:00→15:30)
[2018-05-12 14:55] LABS: INR 0.94 (0.85-1.15); PARTIAL THROMBOPLASTIN TIME 29.9 SEC (26.3-35.5); PROTHROMBIN TIME 9.9 SEC (9.6-11.6)
[2018-05-12 15:10] VITALS: BP 163/82
[2018-05-12] MEDS ORDERED: METOLAZONE 2.5 MG TABLET PO SCH (16:15)
[2018-05-12] MEDS ORDERED: INSULIN R PO SS1 SQ SCH (16:30)
[2018-05-12] MEDS: INSULIN R PO SS1 SQ SCH ×2 (16:30→21:27)
[2018-05-12] MEDS: FUROSEMIDE 10 MG/ML 4ML VIAL IVP SCH (16:59)
[2018-05-12] MEDS ORDERED: COLL30OI TP (17:46)
[2018-05-12] MEDS ORDERED: LINA5TAB PO (17:46)
[2018-05-12] MEDS ORDERED: HYDR-309 PO (17:46)
[2018-05-12] MEDS ORDERED: CITA-106 PO (17:46)
[2018-05-12] MEDS ORDERED: MAAES30 PO (17:46)
[2018-05-12] MEDS ORDERED: ACET325C5 PO (17:46)
[2018-05-12] MEDS ORDERED: HYDR-305 PO (17:46)
[2018-05-12] MEDS ORDERED: LISI-617 PO (17:46)
[2018-05-12] MEDS ORDERED: ONDA4TAB7 PO (17:46)
[2018-05-12] MEDS ORDERED: CARV6.2579 PO (17:46)
[2018-05-12] MEDS ORDERED: POLY17PO4 PO (17:46)
[2018-05-12] MEDS ORDERED: SENN-183 PO (17:46)
[2018-05-12] MEDS ORDERED: POTA10TA18 PO (17:46)
[2018-05-12 18:07] LABS: CREATININE,URINE RANDOM 9 mg/dL (30-135); PROTEIN,URINE RANDOM 29.1 mg/dL (0-11.9)
[2018-05-12 18:14] LABS: APPEARANCE,URINE Clear (CLEAR); BILIRUBIN,URINE Negative (NEGATIVE); COLOR,URINE Yellow (YELLOW); GLUCOSE, URINE (UA) Negative (NEGATIVE); KETONES,URINE Negative (NEGATIVE); LEUKOCYTE ESTERASE ,URINE Negative (NEGATIVE); NITRATE,URINE Negative (NEGATIVE); OCCULT BLOOD,URINE Negative (NEGATIVE); PH,URINE 7.5 (5.0-8.0); PROTEIN,URINE POS 1+ (NEGATIVE)
[2018-05-12 18:25] LABS: BACTERIA,URINE Few /HPF (None Seen); RBC,URINE None Seen /HPF (0-1); WBC,URINE 0-1 /HPF (0-1)
[2018-05-12 20:04] VITALS: BP 156/77
[2018-05-12 23:59] VITALS: BP 100/52
[2018-05-13] MEDS: FUROSEMIDE 10 MG/ML 4ML VIAL IVP SCH ×3 (00:07→16:00)
[2018-05-13 04:31] VITALS: BP 125/61
[2018-05-13 04:39] LABS: HEMATOCRIT 27.9 % (36-48); MEAN CORPUSCULAR VOLUME 83.4 fL (79-99); NUCLEATED RED BLOOD CELLS 0.1 % (0.0-0.19); PLATELET COUNT (AUTO) 298 K/uL (130-400); RED BLOOD CELL COUNT(AUTO) 3.35 MIL/uL (4.00-5.50); RED CELL DISTRIBUTION WIDTH 15.9 % (11.0-15.5); WHITE BLOOD COUNT (AUTO) 7.8 K/uL (4.8-10.8)
[2018-05-13 04:43] LABS: CREATININE 1.6 mg/dL (0.5-1.5); POTASSIUM 4.4 mmol/L (3.5-5.1)
[2018-05-13 05:06] LABS: BAND NEUTROPHILS % (MANUAL) 1 % (0-2); BASOPHILS % (MANUAL) 1 % (0-2); EOSINOPHILS % (MANUAL) 3 % (1-6); LYMPHOCYTES % (MANUAL) 10 % (22-44); MAN.DIFF COMMENT-IMPRESSION MANUAL DIFFERENTIAL; MONOCYTES % (MANUAL) 3 % (2-9); PLATELET MORPHOLOGY COMMENT ADEQUATE; SEGMENTED NEUTROPHILS % 82 % (40-70)
[2018-05-13] MEDS: INSULIN R PO SS1 SQ SCH ×4 (06:47→21:02)
[2018-05-13 07:33] VITALS: BP 158/76
[2018-05-13] MEDS: FUROSEMIDE 10 MG/ML 4ML VIAL IV SCH ×2 (11:08→16:40)
[2018-05-13] MEDS: CARVEDILOL 6.25 MG TABLET PO SCH ×2 (11:08→20:57)
[2018-05-13] MEDS: ASPIRIN 81MG TAB.CHEW PO SCH (11:09)
[2018-05-13 11:16] VITALS: BP 148/63
[2018-05-13] MEDS ORDERED: COMPOUND IV MISC 1 EACH IVSOLN MISC PRN (12:15)
[2018-05-13] MEDS: LISINOPRIL 5 MG TABLET PO SCH (12:47)
[2018-05-13] MEDS: HONEY 1 APPL/ML TUBE TP SCH (12:47)
[2018-05-13] MEDS: HYDROCODONE/ACETAMINOPHEN 5/325 MG TAB PO PRN ×2 (13:21→23:28)
[2018-05-13 16:06] VITALS: BP 131/59
[2018-05-13 19:40] VITALS: BP 121/57
[2018-05-13] MEDS: ATORVASTATIN CALCIUM 40 MG TABLET PO SCH (20:57)
[2018-05-13 23:21] VITALS: BP 108/54
[2018-05-14 04:24] VITALS: BP 95/53
[2018-05-14 06:01] LABS: HEMATOCRIT 29.9 % (36-48); MEAN CORPUSCULAR HEMOGLOBIN 28.4 pg (27.0-33.0); MEAN CORPUSCULAR HGB CONC 33.9 g/dL (32.0-36.0); MEAN CORPUSCULAR VOLUME 83.9 fL (79-99); PLATELET COUNT (AUTO) 330 K/uL (130-400); RED BLOOD CELL COUNT(AUTO) 3.56 MIL/uL (4.00-5.50); RED CELL DISTRIBUTION WIDTH 16.3 % (11.0-15.5); WHITE BLOOD COUNT (AUTO) 7.4 K/uL (4.8-10.8)
[2018-05-14 06:10] LABS: CREATININE 1.6 mg/dL (0.5-1.5); POTASSIUM 3.9 mmol/L (3.5-5.1)
[2018-05-14] MEDS: INSULIN R PO SS1 SQ SCH ×4 (07:30→20:51)
[2018-05-14 07:35] VITALS: BP 141/67
[2018-05-14] MEDS ORDERED: FUROSEMIDE 40 MG TABLET PO SCH (08:30)
[2018-05-14] MEDS ORDERED: METOLAZONE 2.5 MG TABLET PO SCH (09:15)
[2018-05-14] MEDS: CARVEDILOL 6.25 MG TABLET PO SCH ×2 (10:52→20:51)
[2018-05-14] MEDS: ASPIRIN 81MG TAB.CHEW PO SCH (10:53)
[2018-05-14] MEDS: LISINOPRIL 5 MG TABLET PO SCH ×2 (10:53→12:15)
[2018-05-14] MEDS: GLYBURIDE 5 MG TABLET PO SCH (10:53)
[2018-05-14] MEDS: FUROSEMIDE 10 MG/ML 4ML VIAL IV SCH ×2 (10:54→19:04)
[2018-05-14] MEDS: POTASSIUM CHLORIDE 20 MEQ ERTAB PO SCH ×2 (10:54→20:50)
[2018-05-14] MEDS: IRON SUCROSE COMPLEX 100 MG in SODIUM CHLORIDE 0.9% 50 ML IV SCH (10:54)
[2018-05-14] MEDS: HONEY 1 APPL/ML TUBE TP SCH (10:56)
[2018-05-14 11:55] VITALS: BP 147/61
[2018-05-14 16:00] VITALS: BP 131/57
[2018-05-14 19:33] VITALS: BP 139/67
[2018-05-14] MEDS: ATORVASTATIN CALCIUM 40 MG TABLET PO SCH (20:50)
[2018-05-14 23:47] VITALS: BP 94/47
[2018-05-15 04:00] VITALS: BP 129/67
[2018-05-15 04:15] LABS: CREATININE 1.5 mg/dL (0.5-1.5); POTASSIUM 3.9 mmol/L (3.5-5.1)
[2018-05-15 07:30] VITALS: BP 152/70
[2018-05-15] MEDS: INSULIN R PO SS1 SQ SCH ×4 (07:30→21:26)
[2018-05-15] MEDS: ASPIRIN 81MG TAB.CHEW PO SCH (08:18)
[2018-05-15] MEDS: LISINOPRIL 5 MG TABLET PO SCH ×2 (08:18→12:15)
[2018-05-15] MEDS: GLYBURIDE 5 MG TABLET PO SCH (08:18)
[2018-05-15] MEDS: CARVEDILOL 6.25 MG TABLET PO SCH ×2 (08:18→20:14)
[2018-05-15] MEDS: HYDROCODONE/ACETAMINOPHEN 5/325 MG TAB PO PRN ×2 (08:22→22:05)
[2018-05-15] MEDS: HONEY 1 APPL/ML TUBE TP SCH (09:00)
[2018-05-15] MEDS ORDERED: FUROSEMIDE 10 MG/ML 4ML VIAL IV ONE (11:30)
[2018-05-15 11:50] VITALS: BP 103/53
[2018-05-15] MEDS: IRON SUCROSE COMPLEX 100 MG in SODIUM CHLORIDE 0.9% 50 ML IV SCH (12:10)
[2018-05-15] MEDS: POTASSIUM CHLORIDE 20 MEQ ERTAB PO SCH ×3 (12:12→20:14)
[2018-05-15 16:10] VITALS: BP 146/69
[2018-05-15] MEDS ORDERED: MAGNESIUM 2GM PREMIX 50ML 50 ML IV PRN (18:30)
[2018-05-15] MEDS: FUROSEMIDE 10 MG/ML 4ML VIAL IV SCH (18:52)
[2018-05-15 20:00] VITALS: BP 150/69
[2018-05-15] MEDS: ATORVASTATIN CALCIUM 40 MG TABLET PO SCH (20:14)
[2018-05-15 23:47] VITALS: BP 81/47
[2018-05-16 03:48] LABS: HEMATOCRIT 30.8 % (36-48); MEAN CORPUSCULAR HEMOGLOBIN 28.2 pg (27.0-33.0); MEAN CORPUSCULAR HGB CONC 33.7 g/dL (32.0-36.0); MEAN CORPUSCULAR VOLUME 83.6 fL (79-99); PLATELET COUNT (AUTO) 323 K/uL (130-400); RED BLOOD CELL COUNT(AUTO) 3.69 MIL/uL (4.00-5.50); RED CELL DISTRIBUTION WIDTH 16.3 % (11.0-15.5); WHITE BLOOD COUNT (AUTO) 9.3 K/uL (4.8-10.8)
[2018-05-16 03:52] VITALS: BP 98/49
[2018-05-16 03:59] LABS: CREATININE 1.9 mg/dL (0.5-1.5); MAGNESIUM 1.6 mg/dL (1.80-2.40); POTASSIUM 4.7 mmol/L (3.5-5.1)
[2018-05-16 04:03] LABS: B-TYPE NATRIURETIC PEPTIDE 327 pg/mL (0-100)
[2018-05-16] MEDS: INSULIN R PO SS1 SQ SCH ×4 (05:56→21:00)
[2018-05-16 07:58] VITALS: BP 142/59
[2018-05-16] MEDS: GLYBURIDE 5 MG TABLET PO SCH (08:34)
[2018-05-16] MEDS: ASPIRIN 81MG TAB.CHEW PO SCH (08:35)
[2018-05-16] MEDS: HONEY 1 APPL/ML TUBE TP SCH (08:35)
[2018-05-16] MEDS: LISINOPRIL 5 MG TABLET PO SCH ×2 (08:35→12:15)
[2018-05-16] MEDS: CARVEDILOL 6.25 MG TABLET PO SCH ×2 (08:35→21:08)
[2018-05-16 11:17] VITALS: BP 140/60
[2018-05-16] MEDS: IRON SUCROSE COMPLEX 100 MG in SODIUM CHLORIDE 0.9% 50 ML IV SCH (12:58)
[2018-05-16 16:07] VITALS: BP 117/54
[2018-05-16 19:44] VITALS: BP 139/68
[2018-05-16] MEDS: ATORVASTATIN CALCIUM 40 MG TABLET PO SCH (21:08)
[2018-05-17] VITALS (7 sets, daily range): BP systolic 103–129; BP diastolic 52–69
[2018-05-17] MEDS: HYDROCODONE/ACETAMINOPHEN 5/325 MG TAB PO PRN ×2 (00:23→07:58)
[2018-05-17 05:15] LABS: CREATININE 1.8 mg/dL (0.5-1.5); MAGNESIUM 1.7 mg/dL (1.80-2.40); POTASSIUM 4.2 mmol/L (3.5-5.1)
[2018-05-17] MEDS: INSULIN R PO SS1 SQ SCH ×4 (06:12→20:53)
[2018-05-17] MEDS: FUROSEMIDE 10 MG/ML 4ML VIAL IV SCH (07:26)
[2018-05-17] MEDS: CARVEDILOL 6.25 MG TABLET PO SCH ×2 (07:54→19:55)
[2018-05-17] MEDS: ASPIRIN 81MG TAB.CHEW PO SCH (07:54)
[2018-05-17] MEDS: GLYBURIDE 5 MG TABLET PO SCH (07:54)
[2018-05-17] MEDS: LISINOPRIL 5 MG TABLET PO SCH ×2 (07:54→11:32)
[2018-05-17] MEDS: HONEY 1 APPL/ML TUBE TP SCH (07:55)
[2018-05-17] MEDS: IRON SUCROSE COMPLEX 100 MG in SODIUM CHLORIDE 0.9% 50 ML IV SCH (09:00)
[2018-05-17] MEDS: ATORVASTATIN CALCIUM 40 MG TABLET PO SCH (19:54)
[2018-05-18] MEDS: HYDROCODONE/ACETAMINOPHEN 5/325 MG TAB PO PRN ×2 (02:33→17:02)
[2018-05-18 04:28] LABS: CREATININE 1.6 mg/dL (0.5-1.5); POTASSIUM 3.6 mmol/L (3.5-5.1)
[2018-05-18 04:57] VITALS: BP 101/54
[2018-05-18] MEDS: INSULIN R PO SS1 SQ SCH ×4 (06:08→21:00)
[2018-05-18 07:42] VITALS: BP 127/61
[2018-05-18] MEDS: LISINOPRIL 5 MG TABLET PO SCH (08:07)
[2018-05-18] MEDS: GLYBURIDE 5 MG TABLET PO SCH (08:07)
[2018-05-18] MEDS: ASPIRIN 81MG TAB.CHEW PO SCH (08:07)
[2018-05-18] MEDS: CARVEDILOL 6.25 MG TABLET PO SCH ×2 (08:07→20:27)
[2018-05-18] MEDS: IRON SUCROSE COMPLEX 100 MG in SODIUM CHLORIDE 0.9% 50 ML IV SCH (08:43)
[2018-05-18] MEDS: HONEY 1 APPL/ML TUBE TP SCH (08:43)
[2018-05-18 11:42] VITALS: BP 143/66
[2018-05-18 16:48] VITALS: BP 145/73
[2018-05-18 19:00] VITALS: BP 136/64
[2018-05-18] MEDS: ATORVASTATIN CALCIUM 40 MG TABLET PO SCH (20:27)
[2018-05-19] VITALS: BP 137/62
[2018-05-19] MEDS: HYDROCODONE/ACETAMINOPHEN 5/325 MG TAB PO PRN ×2 (03:38→10:35)
[2018-05-19 04:00] VITALS: BP 136/67
[2018-05-19] MEDS: INSULIN R PO SS1 SQ SCH (06:01)
[2018-05-19 07:39] VITALS: BP 127/67
[2018-05-19] MEDS: IRON SUCROSE COMPLEX 100 MG in SODIUM CHLORIDE 0.9% 50 ML IV SCH (09:00)
[2018-05-19] MEDS ORDERED: FUROSEMIDE 20 MG TABLET PO SCH (09:00)
[2018-05-19] MEDS: GLYBURIDE 5 MG TABLET PO SCH (10:33)
[2018-05-19] MEDS: ASPIRIN 81MG TAB.CHEW PO SCH (10:33)
[2018-05-19 10:35] VITALS: BP 127/57
[2018-05-19] MEDS: CARVEDILOL 6.25 MG TABLET PO SCH (10:35)
[2018-05-19] MEDS: LISINOPRIL 5 MG TABLET PO SCH (10:35)
[2018-05-19] MEDS: HONEY 1 APPL/ML TUBE TP SCH (10:38)
== END 2018-05-19 11:23 | disposition home or self-care (01) | DRG 629 ==
LOC: EDH 13:10 → EDHIP 13:55 → 2DH 15:02
PROVIDERS: ADMIT Internal Medicine Pulmonary Disease; ATTEND Internal Medicine Pulmonary Disease
PROC: 0YB50ZZ Excision of Right Inguinal Region, Open Approach (ICD-10-PCS; principal; 2018-05-18)
DX: E87.70 Fluid overload, unspecified (principal); N17.9 Acute kidney failure, unspecified; I13.0 Hypertensive heart and chronic kidney disease with heart failure and stage 1 through stage 4 chronic kidney disease, or unspecified chronic kidney disease; I25.10 Atherosclerotic heart disease of native coronary artery without angina pectoris; E11.51 Type 2 diabetes mellitus with diabetic peripheral angiopathy without gangrene; E11.22 Type 2 diabetes mellitus with diabetic chronic kidney disease; E11.21 Type 2 diabetes mellitus with diabetic nephropathy; N18.9 Chronic kidney disease, unspecified; E78.5 Hyperlipidemia, unspecified; I25.5 Ischemic cardiomyopathy; I27.20 Pulmonary hypertension, unspecified; I50.9 Heart failure, unspecified; I25.2 Old myocardial infarction; Z79.82 Long term (current) use of aspirin; Z79.84 Long term (current) use of oral hypoglycemic drugs; Z79.899 Other long term (current) drug therapy; Z95.1 Presence of aortocoronary bypass graft; Z82.49 Family history of ischemic heart disease and other diseases of the circulatory system; Z84.89 Family history of other specified conditions
CPT/HCPCS: 36415; 71045; 80048; 80053; 81001; 82570; 82948; 83540; 83550; 83735; 83880; 84156; 85025; 85027; 85610; 85730; 93005; 93971; 97039; J1756; J1815; J1940